=== PATIENT | male | born 2000 | race Two or more races ===

== ENCOUNTER 2023-06-13 20:04 | Emergency (ER) | payer OTHER, SELFPAY ==
[2023-06-13 20:12] VITALS: BP 171/94; PULSE 87; RESP 18; TEMP 36.6; O2SAT 95; BMI 36.1
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
[2023-06-13 22:06] VITALS: BP 154/74; PULSE 80; RESP 18; TEMP 36.7; O2SAT 95
[2023-06-13 22:07] VITALS: BP 154/74; PULSE 80; RESP 18; TEMP 36.7
== END 2023-06-13 22:07 | disposition home or self-care (01) ==
PROVIDERS: Emergency Provider Emergency Medicine Emergency Medical Services
DX: S30.0XXA Contusion of lower back and pelvis, initial encounter (principal); V83.5XXA Driver of special industrial vehicle injured in nontraffic accident, initial encounter; Y99.0 Civilian activity done for income or pay
CPT/HCPCS: 72070; 99283; 99284